=== PATIENT | female | born 1950 | race Caucasian/White ===

== ENCOUNTER 2017-09-04 13:19 | Observation (INO) | payer MEDICARE, OTHER ==
[~2017-09-04] VITALS: Ht 152.4 cm; Wt 59.0 kg
[~2017-09-04 13:19] MED LIST: NONE PER PT
[2017-09-04] MEDS ORDERED: ALBU8.5H8 INH (13:30)
[2017-09-04] MEDS ORDERED: MECL12.52 PO (13:30)
[2017-09-04 13:58] LABS: BASOPHILS # (AUTO) 0.03 x10^3/uL (0-0.1); BASOPHILS % (AUTO) 0 % (0-1); EOSINOPHILS # (AUTO) 0.19 x10^3/uL (0-0.4); EOSINOPHILS % (AUTO) 3 % (1-7); LYMPHOCYTES # (AUTO) 2.42 x10^3/uL (1-3.4); LYMPHOCYTES % (AUTO) 32 % (22-44); MD NO; MEAN CORPUSCULAR HEMOGLOBIN 30.6 pg (27.0-34.8); MEAN CORPUSCULAR HGB CONC 33.8 g/dL (32.4-35.8); MEAN CORPUSCULAR VOLUME 90.6 fL (80-100); MEAN PLATELET VOLUME 8.7 fL (7.4-10.4); MONOCYTES # (AUTO) 0.54 x10^3/uL (0.2-0.8); MONOCYTES % (AUTO) 7 % (2-9); NEUTROPHILS # (AUTO) 4.35 x10^3/uL (1.8-6.8); NEUTROPHILS % (AUTO) 58 % (42-75); PLATELET COUNT 272 x10^3/uL (130-400); RED BLOOD COUNT 4.47 x10^6/uL (3.82-5.3); RED CELL DISTRIBUTION WIDTH 13.6 % (9.6-15.2)
[2017-09-04 14:10] LABS: ALBUMIN 3.7 g/dL (3.4-5.0); ANION GAP 8 mmol/L (5-15); CALCIUM 9.3 mg/dL (8.5-10.1); CHLORIDE 110 mmol/L (98-107); CREATININE 1.09 mg/dL (0.55-1.02)
[2017-09-04 14:14] LABS: TROPONIN I < 0.015 ng/mL (0.000-0.045)
[2017-09-04] MEDS ORDERED: LABETALOL 5MG/ML, 20ML IVPush PRN (16:30)
[2017-09-04] MEDS ORDERED: ENOXAPARIN 40 MG/0.4 ML SQ SCH (16:30)
[2017-09-04] MEDS ORDERED: ONDANSETRON ODT 4 MG PO PRN (16:30)
[2017-09-04 16:38] LABS: ALANINE AMINOTRANSFERASE 22 U/L (12-78); ALBUMIN 3.4 g/dL (3.4-5.0); BILIRUBIN, DIRECT 0.1 mg/dL (0.1-0.2)
[2017-09-04 16:42] LABS: ALKALINE PHOSPHATASE 96 U/L (45-117); BILIRUBIN,INDIRECT 0.5 mg/dL (0.0-2.0); BILIRUBIN,TOTAL 0.6 mg/dL (0.2-1.0); FREE T4 (FREE THYROXINE) 1.35 ng/dL (0.76-1.46); TOTAL PROTEIN 7.3 g/dL (6.4-8.2); TROPONIN I < 0.015 ng/mL (0.000-0.045)
[2017-09-04] MEDS ORDERED: ALBUTEROL SULFATE 2.5 MG/3 ML NPPB PRN (17:00)
[2017-09-04] MEDS: SODIUM CHLORIDE 0.9% 1,000 ML IV SCH (17:02)
[2017-09-04 17:09] VITALS: BP 156/58
[2017-09-04] MEDS: SUCRALFATE 1 GM/10 ML UDC PO SCH (20:03)
[2017-09-04] MEDS: PANTOPRAZOLE 40 MG IV IVPush SCH (20:03)
[2017-09-04 20:04] VITALS: BP 97/48
[2017-09-04] MEDS ORDERED: ASPI-515 PO (20:52)
[2017-09-04] MEDS ORDERED: PANTOPRAZOLE 20MG TABLET PO SCH (21:00)
[2017-09-04 22:22] LABS: TROPONIN I < 0.015 ng/mL (0.000-0.045)
[2017-09-05 01:28] VITALS: BP 116/65
[2017-09-05 01:46] LABS: CULTURE INDICATED? YES; MICROSCOPIC INDICATED
[2017-09-05] MEDS: SODIUM CHLORIDE 0.9% 1,000 ML IV SCH (02:42)
[2017-09-05 05:01] LABS: ALBUMIN 2.8 g/dL (3.4-5.0); ANION GAP 8 mmol/L (5-15); CALCIUM 8.5 mg/dL (8.5-10.1); CHLORIDE 114 mmol/L (98-107)
[2017-09-05 05:06] LABS: BASOPHILS # (AUTO) 0.03 x10^3/uL (0-0.1); BASOPHILS % (AUTO) 1 % (0-1); EOSINOPHILS # (AUTO) 0.28 x10^3/uL (0-0.4); EOSINOPHILS % (AUTO) 6 % (1-7); LYMPHOCYTES # (AUTO) 2.49 x10^3/uL (1-3.4); LYMPHOCYTES % (AUTO) 51 % (22-44); MD NO; MEAN CORPUSCULAR HEMOGLOBIN 30.8 pg (27.0-34.8); MEAN CORPUSCULAR HGB CONC 33.6 g/dL (32.4-35.8); MEAN CORPUSCULAR VOLUME 91.7 fL (80-100); MEAN PLATELET VOLUME 8.9 fL (7.4-10.4); MONOCYTES # (AUTO) 0.46 x10^3/uL (0.2-0.8); MONOCYTES % (AUTO) 9 % (2-9); NEUTROPHILS # (AUTO) 1.64 x10^3/uL (1.8-6.8); NEUTROPHILS % (AUTO) 34 % (42-75); PLATELET COUNT 228 x10^3/uL (130-400); RED BLOOD COUNT 3.91 x10^6/uL (3.82-5.3); RED CELL DISTRIBUTION WIDTH 13.6 % (9.6-15.2)
[2017-09-05 05:14] LABS: ALANINE AMINOTRANSFERASE 19 U/L (12-78); ALKALINE PHOSPHATASE 79 U/L (45-117); BILIRUBIN,TOTAL 0.8 mg/dL (0.2-1.0)
[2017-09-05] MEDS ORDERED: ASPIRIN 81 MG TABLET EC PO SCH ×2 (06:00)
[2017-09-05] MEDS: SUCRALFATE 1 GM/10 ML UDC PO SCH (07:00)
[2017-09-05 07:20] VITALS: BP 149/74
[2017-09-05] MEDS ORDERED: REGADENOSON 0.4 MG/5 ML SYRINGE ONE (07:41)
[2017-09-05] MEDS ORDERED: SENNA/DOCUSATE TABLET PO SCH (09:00)
[2017-09-05] MEDS: PANTOPRAZOLE 40 MG IV IVPush SCH (10:37)
[2017-09-05] MEDS ORDERED: PANT40TA5 PO (13:33)
[2017-09-05 13:35] VITALS: BP 144/68
== END 2017-09-05 18:05 | disposition home or self-care (01) ==
LOC: ED 15:30 → 5SO 16:05 → ED 16:12 → INTOOBSV 16:30 → UNDOADMOB 16:30 → 5SO 16:30 → UNDODISOB 09-05 18:05
PROVIDERS: ADMIT Hospitalist; ATTEND Hospitalist
DX: R07.9 Chest pain, unspecified (principal); C34.90 Malignant neoplasm of unspecified part of unspecified bronchus or lung; K21.9 Gastro-esophageal reflux disease without esophagitis; J44.9 Chronic obstructive pulmonary disease, unspecified; E43 Unspecified severe protein-calorie malnutrition; N17.0 Acute kidney failure with tubular necrosis; Z85.118 Personal history of other malignant neoplasm of bronchus and lung; Z87.891 Personal history of nicotine dependence; Z90.710 Acquired absence of both cervix and uterus
CPT/HCPCS: 36415; 71046; 76700; 78452; 80048; 80053; 80076; 81001; 82040; 83690; 83735; 84100; 84439; 84443; 84484; 85025; 85379; 87086; 93005; 93017; 96361; 96372; 96374; 99285; A9502; C9113; C9898; G0378; J1650; J2785; J7030

== ENCOUNTER 2017-12-05 13:23 | Observation (INO) | payer MEDICARE, OTHER ==
[~2017-12-05] VITALS: Ht 152.4 cm; Wt 57.9 kg
[~2017-12-05 13:23] MED LIST changes: +ALBU8.5H8 INH; +ASPI-515 PO; +MECL12.52 PO; +PANT40TA5 PO
[2017-12-05] MEDS ORDERED: SODIUM CHLORIDE FLUSH 10ML SYR IVF ONE (14:00)
[2017-12-05 14:19] LABS: BASOPHILS # (AUTO) 0.05 x10^3/uL (0-0.1); BASOPHILS % (AUTO) 1 % (0-1); EOSINOPHILS # (AUTO) 0.08 x10^3/uL (0-0.4); EOSINOPHILS % (AUTO) 1 % (1-7); LYMPHOCYTES # (AUTO) 1.01 x10^3/uL (1-3.4); LYMPHOCYTES % (AUTO) 10 % (22-44); MD NO; MEAN CORPUSCULAR HEMOGLOBIN 30.5 pg (27.0-34.8); MEAN CORPUSCULAR VOLUME 89.6 fL (80-100); MEAN PLATELET VOLUME 8.6 fL (7.4-10.4); MONOCYTES # (AUTO) 0.66 x10^3/uL (0.2-0.8); MONOCYTES % (AUTO) 6 % (2-9); NEUTROPHILS # (AUTO) 8.85 x10^3/uL (1.8-6.8); NEUTROPHILS % (AUTO) 83 % (42-75); PLATELET COUNT 276 x10^3/uL (130-400); RED BLOOD COUNT 4.44 x10^6/uL (3.82-5.3); RED CELL DISTRIBUTION WIDTH 13.5 % (9.6-15.2)
[2017-12-05 14:24] LABS: ALANINE AMINOTRANSFERASE 23 U/L (12-78); ALBUMIN 3.6 g/dL (3.4-5.0); ANION GAP 6 mmol/L (5-15); CALCIUM 8.7 mg/dL (8.5-10.1); CHLORIDE 108 mmol/L (98-107); CREATININE 1.03 mg/dL (0.55-1.02)
[2017-12-05 14:29] LABS: ALKALINE PHOSPHATASE 111 U/L (45-117); BILIRUBIN,TOTAL 0.6 mg/dL (0.2-1.0); TOTAL PROTEIN 7.4 g/dL (6.4-8.2); TROPONIN I < 0.015 ng/mL (0.000-0.045)
[2017-12-05 14:43] LABS: INTERNATIONAL NORMALIZED RATIO 0.96 (0.93-1.1)
[2017-12-05] MEDS ORDERED: LABETALOL 5MG/ML, 20ML IVPush PRN (15:30)
[2017-12-05] MEDS ORDERED: POLYETHYLENE GLYCOL 17 GM PACKET PO PRN (15:30)
[2017-12-05] MEDS ORDERED: ONDANSETRON 2MG/ML, 2ML IVPush PRN (15:30)
[2017-12-05] MEDS ORDERED: ONDANSETRON ODT 4 MG PO PRN (15:30)
[2017-12-05 15:56] LABS: FREE T4 (FREE THYROXINE) 1.11 ng/dL (0.76-1.46); TROPONIN I < 0.015 ng/mL (0.000-0.045)
[2017-12-05] MEDS ORDERED: OMNIPAQUE 350 MG/ML, 100ML BOTTLE ONE (16:16)
[2017-12-05 16:18] VITALS: BP 154/71
[2017-12-05] MEDS: SODIUM CHLORIDE 0.9% 1,000 ML IV SCH (16:53)
[2017-12-05] MEDS: ENOXAPARIN 40 MG/0.4 ML SQ SCH (16:53)
[2017-12-05] MEDS ORDERED: ALBUTEROL SULFATE 2.5 MG/3 ML NPPB PRN (17:00)
[2017-12-05] MEDS ORDERED: B&C/1TAB2 PO (18:17)
[2017-12-05] MEDS ORDERED: CHOL400C PO (18:21)
[2017-12-05] MEDS ORDERED: CALC500T51 PO (18:21)
[2017-12-05] MEDS ORDERED: CETI10CA PO (18:21)
[2017-12-05] MEDS ORDERED: ALBU18HF NEB (18:24)
[2017-12-05 19:37] VITALS: BP 138/90
[2017-12-05] MEDS: FAMOTIDINE 20 MG/2 ML IVPush SCH (20:37)
[2017-12-05 21:12] LABS: TROPONIN I < 0.015 ng/mL (0.000-0.045)
[2017-12-06 01:15] VITALS: BP 102/57
[2017-12-06] MEDS: SODIUM CHLORIDE 0.9% 1,000 ML IV SCH ×2 (04:17→17:47)
[2017-12-06 04:43] LABS: BASOPHILS # (AUTO) 0.03 x10^3/uL (0-0.1); BASOPHILS % (AUTO) 0 % (0-1); EOSINOPHILS # (AUTO) 0.13 x10^3/uL (0-0.4); EOSINOPHILS % (AUTO) 2 % (1-7); LYMPHOCYTES # (AUTO) 1.61 x10^3/uL (1-3.4); LYMPHOCYTES % (AUTO) 19 % (22-44); MD NO; MEAN CORPUSCULAR HEMOGLOBIN 31.2 pg (27.0-34.8); MEAN CORPUSCULAR HGB CONC 34.2 g/dL (32.4-35.8); MEAN PLATELET VOLUME 8.8 fL (7.4-10.4); MONOCYTES # (AUTO) 0.63 x10^3/uL (0.2-0.8); MONOCYTES % (AUTO) 7 % (2-9); NEUTROPHILS # (AUTO) 6.31 x10^3/uL (1.8-6.8); NEUTROPHILS % (AUTO) 73 % (42-75); PLATELET COUNT 231 x10^3/uL (130-400); RED BLOOD COUNT 3.93 x10^6/uL (3.82-5.3); RED CELL DISTRIBUTION WIDTH 13.4 % (9.6-15.2)
[2017-12-06 05:00] LABS: ALANINE AMINOTRANSFERASE 19 U/L (12-78); ANION GAP 9 mmol/L (5-15); CALCIUM 7.9 mg/dL (8.5-10.1); CHLORIDE 108 mmol/L (98-107)
[2017-12-06 05:02] LABS: HEMOGLOBIN A1C 5.3 % (4.2-6.3)
[2017-12-06 05:10] LABS: ALKALINE PHOSPHATASE 94 U/L (45-117); BILIRUBIN,TOTAL 0.6 mg/dL (0.2-1.0); CHOL/HDL RATIO 2.7; CHOLESTEROL, TOTAL 149 mg/dL (140-239); CREATININE 1.11 mg/dL (0.55-1.02); HDL CHOL % 37 % (28-40); HDL CHOLESTEROL (DIRECT) 55 mg/dL (40-60); LDL CHOLESTEROL,CALCULATED 82 mg/dL (54-169); LDL/HDL RATIO 1.5 (0.5-3.0); THYROID STIMULATING HORMONE 0.932 mIU/L (0.358-3.740); TOTAL PROTEIN 6.5 g/dL (6.4-8.2); TRIGLYCERIDES 60 mg/dL (50-200); VLDL CHOLESTEROL 12 mg/dL (0-25)
[2017-12-06 06:45] VITALS: BP 135/71
[2017-12-06] MEDS: FAMOTIDINE 20 MG/2 ML IVPush SCH (08:57)
[2017-12-06] MEDS ORDERED: SENNA/DOCUSATE TABLET PO SCH (09:00)
[2017-12-06 09:22] LABS: TROPONIN I < 0.015 ng/mL (0.000-0.045)
[2017-12-06 13:32] VITALS: BP 122/70
[2017-12-06] MEDS: ENOXAPARIN 40 MG/0.4 ML SQ SCH (15:30)
[2017-12-06] MEDS ORDERED: CARV3.1212 PO (19:35)
[2017-12-06] MEDS ORDERED: PANT40TA5 PO (19:36)
== END 2017-12-06 18:13 | disposition home or self-care (01) ==
LOC: ED 14:43 → EDIP 14:44 → INTOOBSV 14:44 → ED 15:00 → 5SO 16:11 → UNDODISIN 12-06 18:13
PROVIDERS: ADMIT Hospitalist; ATTEND Hospitalist
DX: R07.89 Other chest pain (principal); I27.20 Pulmonary hypertension, unspecified; C34.90 Malignant neoplasm of unspecified part of unspecified bronchus or lung; J44.9 Chronic obstructive pulmonary disease, unspecified; K21.9 Gastro-esophageal reflux disease without esophagitis; N17.0 Acute kidney failure with tubular necrosis; I50.30 Unspecified diastolic (congestive) heart failure; F17.210 Nicotine dependence, cigarettes, uncomplicated; Z85.118 Personal history of other malignant neoplasm of bronchus and lung
CPT/HCPCS: 0399T; 36415; 71045; 71275; 80053; 80061; 83036; 83690; 83735; 84100; 84439; 84443; 84484; 85025; 85610; 85730; 93005; 93306; 96360; 96361; 96372; 99285; G0378; J1650; J7030; Q9967

== ENCOUNTER 2018-06-19 10:34 | Emergency (ER) | payer MEDICARE, OTHER ==
[~2018-06-19] VITALS: Ht 152.4 cm; Wt 55.0 kg
[~2018-06-19 10:34] MED LIST changes: +ALBU18HF NEB; +B&C/1TAB2 PO; +CALC500T51 PO; +CARV3.1212 PO; +CETI10CA PO; +CHOL400C PO
--- NOTE | 2018-06-19 11:17 | NUR ---
Pt to 37 from lobby
--- NOTE | 2018-06-19 11:47 | NUR ---
PT PRESENTING TO ER FOR RIGHT SIDE BACK PAIN EVERY TIME PT TRIES TO TAKE A BREATH STARTING THIS MORNING. PT REPORTING HX OF STAGE 3 LUNG CANCER ON THE RIGHT WHICH HAS BEEN IN REMISSION OF 3 YEARS NOW. CONNECTED TO ALL MONITORING, VSS, SATS 98% ON RA. CALL LIGHT MAGALY GAO. AWAITING MD ASSESSMENT AND ADDITIONAL ORDERS AT THIS TIME. REPORT GIVEN TO ANGELINA ELAM
[2018-06-19 11:49] LABS: BASOPHILS # (AUTO) 0.04 x10^3/uL (0-0.1); BASOPHILS % (AUTO) 1 % (0-1); EOSINOPHILS % (AUTO) 3 % (1-7); LYMPHOCYTES # (AUTO) 2.37 x10^3/uL (1-3.4); LYMPHOCYTES % (AUTO) 36 % (22-44); MD NO; MEAN CORPUSCULAR HEMOGLOBIN 30.3 pg (27.0-34.8); MEAN CORPUSCULAR HGB CONC 33.8 g/dL (32.4-35.8); MEAN CORPUSCULAR VOLUME 89.8 fL (80-100); MEAN PLATELET VOLUME 8.6 fL (7.4-10.4); MONOCYTES # (AUTO) 0.45 x10^3/uL (0.2-0.8); MONOCYTES % (AUTO) 7 % (2-9); NEUTROPHILS % (AUTO) 53 % (42-75); PLATELET COUNT 317 x10^3/uL (130-400); RED BLOOD COUNT 4.45 x10^6/uL (3.82-5.3)
[2018-06-19 12:01] LABS: ALBUMIN 3.7 g/dL (3.4-5.0); ANION GAP 6 mmol/L (5-15); CHLORIDE 108 mmol/L (98-107)
[2018-06-19 12:06] LABS: TROPONIN I < 0.015 ng/mL (0.000-0.045)
--- NOTE | 2018-06-19 12:14 | NUR ---
MD AT BEDSIDE AT THIS TIME.
[2018-06-19 13:38] VITALS: BP 136/62
--- NOTE | 2018-06-19 13:38 | NUR ---
PIV PLACED FOR CTA
[2018-06-19] MEDS ORDERED: OMNIPAQUE 350 MG/ML, 100ML BOTTLE ONE (13:56)
--- NOTE | 2018-06-19 15:11 | NUR ---
Patient/Caregiver given discharge instructions and they have confirmed that they understand the instructions. Patient ambulatory with steady gait.
== END 2018-06-19 15:13 | disposition home or self-care (01) ==
LOC: ED 11:38
DX: R07.1 Chest pain on breathing (principal)
CPT/HCPCS: 36415; 71046; 71275; 80048; 82040; 83880; 84484; 85025; 85379; 93005; 99284; Q9967